=== PATIENT | female | born 1980 | race African-American/Black ===

== ENCOUNTER 2016-04-04 04:33 | Emergency (ER) | payer MEDICARE, OTHER ==
[~2016-04-04] VITALS: Ht 165.1 cm; Wt 48.0 kg
[~2016-04-04 04:33] MED LIST: HYDR25 PO; PRED20 PO
[2016-04-04 04:34] VITALS: BP 151/85; PULSE 124; RESP 18; TEMP 98.2; O2SAT 99
[2016-04-04] MEDS ORDERED: MULT1TAB84 PO (04:51)
--- NOTE | 2016-04-04 05:23 | PD ---
HPI Chief Complaint: Complaint Time Seen by Provider: 05:20 Travel History International Travel<30 days: No Contact w/Intl Traveler<30days: No Traveled to known affect area: No History of Present Illness HPI 35-year-old black female presents to emergency department requesting evaluation and treatment of a possible STD exposure. She states that she had unprotected intercourse with an individual several hours prior. She states that she was not using any type of control. She states that after having intercourse the patient stated to her that he had gonorrhea. She denies any fever or chills. No nausea vomiting. No dysuria or frequency. No vaginal discharge. PFSH Past Medical History Bipolar Disorder: Yes Psychiatric: Yes Respiratory: Yes (ASTHMA) Schizophrenia: Yes ?: Not LMP: "BEGINNING OF THIS MONTH" : 2 Para: 2 Past Surgical History Section: Yes (1 C SECTION) Social History Alcohol Use: Yes Tobacco Use: Yes (SMOKES 1 PACK DAILY.) Substance Use: Yes (MARIJUANA EVERY 2-3 DAYS.) Allergies-Medications (Allergen,Severity, Reaction): Coded Allergies: Latex (Verified Allergy, Severe, 04/04/16) SKIN IRRTATION Reported Meds & Prescriptions Reported Meds & Active Scripts Active Reported Multivitamin Adults (Multiple Vitamins W/ Minerals) 1 Tab 1 Tab PO DAILY Review of Systems Except as stated in HPI: all other systems reviewed are Neg Physical Exam Narrative GENERAL: This is a well-nourished, well-developed patient, in no apparent distress. SKIN: No rashes, ecchymoses or lesions. Warm and dry. HEAD: Atraumatic. Normocephalic. EYES: PERRL, EOMI, no discharge or injection. No scleral icterus. EARS: Clear NOSE: Nasal turbinates appear normal. THROAT: Mucosa pink and moist. Airway patent. NECK: Trachea midline. supple, moves head freely. LUNGS: Clear to auscultation. CV: Regular in rhythm. ABDOMEN: Soft nontender. EXT: No clubbing cyanosis or edema. Data Data Last Documented VS Vital Signs Date Time Temp Pulse Resp B/P Pulse Ox O2 Delivery O2 Flow Rate FiO2 04/04/16 04:34 98.2 124 18 151/85 99 Room Air Orders Ceftriaxone Inj (Rocephin Inj) (04/04/16 05:30) Azithromycin Powd Pack (Zithromax Powd P (04/04/16 05:30) Lidocaine 1% Inj (50 Ml) (Xylocaine 1% I (04/04/16 05:30) MDM Medical Decision Making Medical Screen Exam Complete: Yes Emergency Medical Condition: Yes Medical Record Reviewed: Yes Differential Diagnosis MDM: Moderate Differential diagnoses: Chlamydia, gonorrhea, syphilis, chancroid, hepatitis, HIV, herpes Narrative Course Patient is given Rocephin 250 mg IM and 1 g of Zithromax by mouth. Diagnosis Primary Impression: STD exposure Patient Instructions: General Instructions Additional Instructions: Rest. Partner notification. Follow-up with the [facility] Department for further STD testing such as HIV, syphilis and hepatitis. No intercourse until all partners treated. Always use a condom. Return to the ER if any problems. Med/Other Pt SpecificInfo: No Change to Meds Disposition: 01 DISCHARGE HOME Condition: Ean Olivas Apr 04, 2016 05:23
[2016-04-04] MEDS ORDERED: LIDOCAINE HCL 1% 50 ML VIAL INFIL ONE (05:30)
[2016-04-04] MEDS ORDERED: AZITHROMYCIN PWD FOR SUSP 1 GM PACKET PO ONE (05:30)
[2016-04-04 06:15] VITALS: PULSE 88
== END 2016-04-04 06:40 | disposition home or self-care (01) ==
LOC: NEPB 04:33
DX: Z20.2 Contact with and (suspected) exposure to infections with a predominantly sexual mode of transmission (principal); F17.210 Nicotine dependence, cigarettes, uncomplicated; F12.90 Cannabis use, unspecified, uncomplicated
CPT/HCPCS: 96372; 99283; J0696

== ENCOUNTER 2016-12-12 09:52 | Emergency (ER) | payer MEDICARE, OTHER ==
[~2016-12-12] VITALS: Ht 157.5 cm; Wt 62.0 kg
[~2016-12-12 09:52] MED LIST changes: -HYDR25 PO; +MULT1TAB84 PO; -PRED20 PO
[2016-12-12] MEDS ORDERED: PERM5CRE11 TOPICAL (10:18)
--- NOTE | 2016-12-12 10:18 | PD ---
HPI Chief Complaint: Skin Problem Time Seen by Provider: 10:16 Travel History International Travel<30 days: No Contact w/Intl Traveler<30days: No Traveled to known affect area: No History of Present Illness HPI 36 year-old female presents to emergency department for evaluation of a pruritic rash. The rash started on her hands and has since moved to her arms and her chest. She has some on her medial thighs. Patient believes she may have scabies or been exposed but wanted to be checked out so she could be treated appropriately. Denies any other new exposures. No recent illnesses, fever, or chills. No other symptoms to report. PFSH Past Medical History Bipolar Disorder: Yes Psychiatric: Yes Respiratory: Yes (ASTHMA) Schizophrenia: Yes ?: Not LMP: 12/11/16 : 2 Para: 2 Past Surgical History Section: Yes (1 C SECTION) Social History Alcohol Use: Yes Tobacco Use: Yes (SMOKES 1 PACK DAILY.) Substance Use: Yes (MARIJUANA EVERY 2-3 DAYS.) Allergies-Medications (Allergen,Severity, Reaction): Coded Allergies: latex (Verified Allergy, Severe, 12/12/16) SKIN IRRTATION Reported Meds & Prescriptions Reported Meds & Active Scripts Active Elimite Topical (Permethrin) 5% Cream 1 Applic TOPICAL ONCE Review of Systems Except as stated in HPI: all other systems reviewed are Neg Physical Exam Narrative GENERAL: Well-nourished, well-developed female patient, ambulatory no acute distress SKIN: Focused skin assessment warm/dry. Micropapular rash in the webbing of the fingers extending to the antecubital space and on the anterior chest. Some mild excoriation from scratching. No vesicular or pustular formation. HEAD: Normocephalic. EYES: No scleral icterus. No injection or drainage. NECK: Supple, trachea midline. No JVD or lymphadenopathy. CARDIOVASCULAR: Regular rate and rhythm without murmurs, gallops, or rubs. RESPIRATORY: Breath sounds equal bilaterally. No accessory muscle use. GASTROINTESTINAL: Abdomen soft, non-tender, nondistended. MUSCULOSKELETAL: No cyanosis, or edema. BACK: Nontender without obvious deformity. No CVA tenderness. MDM Medical Decision Making Medical Screen Exam Complete: Yes Emergency Medical Condition: Yes Medical Record Reviewed: Yes Differential Diagnosis Scabies versus contact dermatitis versus folliculitis versus allergic reaction Narrative Course 36 year-old female presents to emergency department for evaluation. Physical exam is consistent with scabies. Patient be treated for this. She is counseled on care and encouraged to follow-up with primary care provider. She agrees to return immediately with any acute worsening of symptoms. 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
== END 2016-12-12 10:35 | disposition home or self-care (01) ==
LOC: NEPK 09:52
DX: B86 Scabies (principal); F17.210 Nicotine dependence, cigarettes, uncomplicated
CPT/HCPCS: 99283

== ENCOUNTER 2017-04-23 10:41 | Emergency (ER) | payer MEDICARE, OTHER ==
[~2017-04-23] VITALS: Ht 162.6 cm; Wt 55.0 kg
[~2017-04-23 10:41] MED LIST changes: -MULT1TAB84 PO; +PERM5CRE11 TOPICAL
[2017-04-23 10:47] VITALS: BP 152/111; PULSE 106; RESP 16; TEMP 98.7; O2SAT 100
[2017-04-23] MEDS ORDERED: SODIUM CHLOR 0.9% 1000 ML INJ 1,000 ML IV ONE (11:15)
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
--- NOTE | 2017-04-23 11:47 | RADRPT ---
EXAM DATE/TIME: 04/23/2017 11:18 [facility] COMPARISON: No previous studies available for comparison. INDICATIONS : Shortness of breath. MEDICAL HISTORY : None. SURGICAL HISTORY : None. ENCOUNTER: Initial ACUITY: 1 day PAIN SCORE: 4/10 LOCATION: Bilateral chest FINDINGS: A single view of the chest demonstrates the lungs to be symmetrically aerated without evidence of mas s, infiltrate or effusion. The cardiomediastinal contours are unremarkable. Osseous structures are intact. CONCLUSION: 1. No acute cardiopulmonary disease. Manpreet Mendieta MD on April 23, 2017 at 11:45 Board Certified Radiologist. This report was verified electronically.
[2017-04-23] MEDS ORDERED: ACETAMINOPHEN 325 MG TAB PO ONE (12:15)
[2017-04-23 12:19] LABS: AUTOMATED NEUTROPHIL # 1.7 TH/MM3 (1.8-7.7); BASOPHIL % 1.1 % (0.0-2.0); EOSINOPHIL # 0.1 TH/MM3 (0-0.4); EOSINOPHIL % 2.4 % (0.0-4.0); HEMATOCRIT 43.4 % (35.0-46.0); HEMOGLOBIN 15.6 GM/DL (11.6-15.3); LYMPH % 36.5 % (9.0-44.0); LYMPHOCYTE # 1.2 TH/MM3 (1.0-4.8); MEAN CELL VOLUME 92.1 FL (80.0-100.0); MEAN CORPUSCULAR HGB CONC 35.8 % (32.0-36.0); MEAN PLATELET VOLUME 8.3 FL (7.0-11.0); MONO % 9.5 % (0.0-8.0); MONOCYTE # 0.3 TH/MM3 (0-0.9); NEUT % 50.5 % (16.0-70.0); PLATELET COUNT 242 TH/MM3 (150-450); RED BLOOD COUNT 4.72 MIL/MM3 (4.00-5.30); RED CELL DISTRIBUTION WIDTH 13.6 % (11.6-17.2); WHITE BLOOD COUNT 3.4 TH/MM3 (4.0-11.0)
[2017-04-23 12:38] LABS: ALT (GPT) 20 U/L (10-53)
[2017-04-23 12:48] LABS: ALKALINE PHOSPHATASE 68 U/L (45-117); TOTAL BILIRUBIN ADULT 1.2 MG/DL (0.2-1.0); TOTAL PROTEIN 7.7 GM/DL (6.4-8.2)
[2017-04-23 12:49] LABS: ALBUMIN 4.2 GM/DL (3.4-5.0); AST (GOT) 27 U/L (15-37); BLOOD UREA NITROGEN 4 MG/DL (7-18); CALCIUM 9.2 MG/DL (8.5-10.1); CHLORIDE 106 MEQ/L (98-107); CREATININE 0.75 MG/DL (0.50-1.00); GLOMERULAR FILTRATION RATE 105 ML/MIN (>89); GLUCOSE,RANDOM 76 MG/DL (74-106); SODIUM (NA) 139 MEQ/L (136-145)
--- NOTE | 2017-04-24 18:31 | EKG ---
Date Performed: 04/23/2017 Time Performed: 11:43:46 PTAGE: 36 years EKG: Sinus rhythm WITH SINUS ARRHYTHMIA NORMAL ECG NO PREVIOUS TRACING DOCTOR: Ty Haji Interpretating Date/Time 04/24/2017 18:28:18
== END 2017-04-23 13:27 | disposition left against medical advice (07) ==
LOC: NEPD 10:41
DX: R06.09 Other forms of dyspnea (principal); R51 Headache; F12.90 Cannabis use, unspecified, uncomplicated; F20.9 Schizophrenia, unspecified; F31.9 Bipolar disorder, unspecified; F17.210 Nicotine dependence, cigarettes, uncomplicated
CPT/HCPCS: 71045; 80053; 80307; 84443; 84703; 85025; 93005; 99285; J7030